=== PATIENT | male | born 1965 | race Caucasian/White ===

== ENCOUNTER 2017-04-28 23:37 | Observation (INO) | payer MEDICARE ==
--- NOTE | 2017-04-28 23:57 | PDOC ---
History of Present Illness - History of Present Illness Initial Comments: 04/28/17 23:58 52 yo M with h/o nicotine, alcohol, and cocaine dependence, homlessness, HTN, and depression, and prior suicide attempts. Pt. reports homicidal ideation prior to arrival. States that he had plan to stab someone he was arguing with. He states that when he leaves facility he is going to kill the individual. Patient also reports feeling suicidal and states that he is going to walk into oncoming traffic and end his life because he is in chronic pain and tired of living. Pt. reports 1 week of BL LE pain without swelling, and retrosternal pressure. States that he has been worked up at previous [facility] for chest pain, and no abnormal findings.Endorses chronic SOB, and chronic bronchitis. + diarrhea. Denies N/V, F/C, abdominal pain, urinary complaints, lightheadedness, weakness, sensory changes. Patient seen in [facility] for suicidal ideations 04/22. Patient reports cocaine, alcohol, and heroin use today. <Allan Rich - Last Filed: 04/29/17 07:06> <Donny Irving - Last Filed: 04/29/17 08:13> - General Stated Complaint: PSYCHIATRIC Time Seen by Provider: 04/28/17 23:52 Past History - Past Medical History Anemia: No Asthma: Yes (Not on meds) Cardiac Disorders: No CVA: No COPD: No Diabetes: No GI Disorders: Yes (Acid reflux) Disorders: No HTN: Yes (Not on meds) Hypercholesterolemia: No Kidney Stones: No Liver Disease: Yes (Hep C) Seizures: No Thyroid Disease: No - Surgical History Abdominal Surgery: No Appendectomy: No Cardiac Surgery: No Cholecystectomy: No Lung Surgery: No Neurologic Surgery: No Orthopedic Surgery: Yes (Left knee repair [address] [facility]) - Reproductive History Testicular Surgery: No - Suicide/Smoking/Psychosocial Hx Smoking History: Current every day smoker Have you smoked in the past 12 months: Yes Number of Cigarettes Smoked Daily: 20 'Breaking Loose' booklet given: 12/09/16 Hx Alcohol Use: Yes (Vodka) Drug/Substance Use Hx: Yes (Cocaine) Substance Use Type: Alcohol, Cocaine Hx Substance Use Treatment: Yes ([facility] 2006) <Allan Rich - Last Filed: 04/29/17 07:06> <AydeCamila davisaguilar Jonese - Last Filed: 04/29/17 08:13> - Past Medical History Allergies/Adverse Reactions: Allergies Allergy/AdvReac Type Severity Reaction Status Date / Time No Known Allergies Allergy Verified 04/29/17 03:42 Home Medications: Ambulatory Orders Aripiprazole [Abilify -] 10 mg PO DAILY 12/09/16 Barada Carbonate [Eskalith -] 300 mg PO TID 12/09/16 Review of Systems - Review of Systems Comments:: 04/28/17 23:56 GENERAL/CONSTITUTIONAL: No fever or chills. No weakness. HEAD, EYES, EARS, NOSE AND THROAT: No change in vision. No ear pain or discharge. No sore throat. CARDIOVASCULAR: No chest pain or shortness of breath RESPIRATORY: + Chest pain, cough. No wheezing, or hemoptysis. GASTROINTESTINAL: No nausea, vomiting, diarrhea or constipation. GENITOURINARY: No dysuria, frequency, or change in urination. MUSCULOSKELETAL: + Leg pain BL. No joint or muscle swelling. No neck or back pain. SKIN: No rash NEUROLOGIC: No headache, vertigo, loss of consciousness, or change in strength/ sensation. ENDOCRINE: No increased thirst. No abnormal weight change HEMATOLOGIC/LYMPHATIC: No anemia, easy bleeding, or history of blood clots. ALLERGIC/IMMUNOLOGIC: No hives or skin allergy. <Allan Rich - Last Filed: 04/29/17 07:06> *Physical Exam - Physical Exam Comments: 04/28/17 23:57 GENERAL: Awake, alert, and fully oriented, in no acute distress HEAD: No signs of trauma, normocephalic, atraumatic EYES: PERRLA, EOMI, sclera anicteric, conjunctiva clear ENT: Hearing grossly normal, nares patent, oropharynx clear without exudates. Moist mucosa NECK: Normal ROM, supple, no lymphadenopathy, JVD, or masses LUNGS: No distress, speaks full sentences, clear to auscultation bilaterally HEART: Regular rate and rhythm, normal S1 and S2, no murmurs, rubs or gallops, peripheral pulses normal and equal bilaterally. ABDOMEN: Soft, nontender, normoactive bowel sounds. No guarding, no rebound. No masses EXTREMITIES : Normal inspection, Normal range of motion, no edema. No clubbing or cyanosis. NEUROLOGICAL: Cranial nerves II through XII grossly intact. Normal speech, normal gait, no focal sensorimotor deficits SKIN: Warm, Dry, normal turgor, no rashes or lesions noted <Allan Rich - Last Filed: 04/29/17 07:06> - Vital Signs Last Vital Signs Temp Pulse Resp BP Pulse Ox 98.7 F 90 15 128/78 100 04/29/17 06:27 04/29/17 06:27 04/29/17 06:27 04/29/17 06:27 04/29/17 06:27 <Donny Irving - Last Filed: 04/29/17 08:13> ED Treatment Course - LABORATORY CBC & Chemistry Diagram: 04/29/17 02:35 04/29/17 02:35 <Allan Rich - Last Filed: 04/29/17 07:06> - LABORATORY CBC & Chemistry Diagram: 04/29/17 02:35 04/29/17 02:35 - ADDITIONAL ORDERS Additional order review: Laboratory Results 04/29/17 04/29/17 04/29/17 03:49 02:50 02:40 Sodium Potassium Chloride Carbon Dioxide Anion Gap BUN Creatinine Creat Clearance w eGFR Random Glucose Calcium Total Bilirubin AST ALT Alkaline Phosphatase Creatine Kinase 315 H Creatine Kinase Index 2.0 CK-MB (CK-2) 6.515 H Troponin I < 0.02 Total Protein Albumin Urine Color Straw Urine Appearance Clear Urine pH 7.0 Ur Specific [place] 1.006 Urine Protein Negative Urine Glucose (UA) Negative Urine Ketones Negative Urine Blood Negative Urine Nitrite Negative Urine Bilirubin Negative Urine Urobilinogen Negative Ur Leukocyte Esterase Negative Opiates Screen Negative Methadone Screen Negative Barbiturate Screen Negative Phencyclidine Screen Negative Ur Amphetamines Screen Negative MDMA (Ecstasy) Screen Negative Benzodiazepines Screen Negative Cocaine Screen Positive U Marijuana (THC) Screen Negative 04/29/17 02:35 Sodium 140 Potassium 4.2 Chloride 103 Carbon Dioxide 28 Anion Gap 9 BUN 16 Creatinine 0.9 Creat Clearance w eGFR > 60 Random Glucose 104 Calcium 8.6 Total Bilirubin 0.4 AST 31 ALT 36 Alkaline Phosphatase 162 H Creatine Kinase Creatine Kinase Index CK-MB (CK-2) Troponin I Total Protein 6.8 Albumin 3.1 L Urine Color Urine Appearance Urine pH Ur Specific [place] Urine Protein Urine Glucose (UA) Urine Ketones Urine Blood Urine Nitrite Urine Bilirubin Urine Urobilinogen Ur Leukocyte Esterase Opiates Screen Methadone Screen Barbiturate Screen Phencyclidine Screen Ur Amphetamines Screen MDMA (Ecstasy) Screen Benzodiazepines Screen Cocaine Screen U Marijuana (THC) Screen 04/29/17 02:35 RBC 4.07 MCV 75.2 L MCHC 33.3 RDW 18.7 H MPV 8.0 Neutrophils % 49.1 Lymphocytes % 36.1 Monocytes % 7.0 Eosinophils % 6.9 H Basophils % 0.9 - Medications Given in the ED: ED Medications Discontinued Medications Generic Name Dose Route Start Last Admin Trade Name Freq PRN Reason Stop Dose Admin Diphenhydramine HCl 25 mg 04/29/17 01:17 04/29/17 02:48 Benadryl Injection - IM 04/29/17 01:18 25 mg ONCE ONE Administration Haloperidol 5 mg 04/29/17 01:17 04/29/17 02:48 Haldol Injection (Fast Acting) - IM 04/29/17 01:18 5 mg ONCE ONE Administration Lorazepam 2 mg 04/29/17 01:17 04/29/17 02:48 Ativan Injection - IM 04/29/17 01:18 2 mg ONCE ONE Administration <Donny Irving - Last Filed: 04/29/17 08:13> Medical Decision Making - Medical Decision Making 04/29/17 01:24 52 yo M with h/o nicotine, alcohol, and cocaine dependence, homelessness, HTN, and depression, and prior suicide attempts who reports homicidal ideation prior to arrival. States that he had plan to stab someone he was arguing with. He states that when he leaves facility he is going to kill the individual. Patient also reports feeling suicidal and states that he is going to walk into oncoming traffic and end his life because he is in chronic pain and tired of living. Endorses BL LE pain without swelling, and retrosternal pressure x 1 week. Denies N/V, F/C, abdominal pain, urinary complaints, lightheadedness, weakness, sensory changes. Patient seen in [facility] for suicidal ideations 04/22. Patient reports cocaine, alcohol, and heroin use today. Patient endorsing both SI, and HI. He will be transferred to outside facility for further psych evaluation. Currently unable to obtain proper phsycial exam/ workup d/t agitation and refusal. LE pain may be 2/2 DVT, vs. cardiac etiology. Does not appear to be overlying skin changes. Will reassess LE and cardiopulm exam when able for possible PNA, CHF, ACS/WA. Low risk PE based on Weils criteria. 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 for psych eval. Pt. currently stable. Patient signed out to Dr. Mathew. <Allan Rich - Last Filed: 04/29/17 07:06> - Medical Decision Making 04/29/17 08:[address] was called regarding the patient at 8:13am and a message was left on his cell phone. [phone] <Donny Irving - Last Filed: 04/29/17 08:13> *DC/Admit/Observation/Transfer - Attestations Physician Attestion: 04/29/17 07:08 I attest to the information provided in this note. <Allan Rich - Last Filed: 04/29/17 07:06> <Donny Irving - Last Filed: 04/29/17 08:13> Diagnosis at time of Disposition: Suicidal behavior without attempted self-injury - Discharge Dispostion Condition at time of disposition: Stable - Referrals Referrals: Fan Way MD [Staff Physician] - - Patient Instructions Printed Discharge Instructions: DI for Suicidal Ideation-Adult Additional Instructions: Please return to the emergency department with any new or worsening symptoms or concerns. Please follow up with your primary care physician within 72 hours.
[2017-04-29] MEDS ORDERED: HALOPERIDOL LACTATE 5 MG/ML IM ONE (01:17)
[2017-04-29] MEDS ORDERED: HALOPERIDOL LACTATE 5 MG/ML ONE (02:38)
[2017-04-29] MEDS ORDERED: LORazepam 2 MG/ML SDV VIAL ONE (02:39)
[2017-04-29 02:47] LABS: BASO % 0.9 % (0-2.0); EOS % 6.9 % (0-4.5); HEMATOCRIT 30.6 % (35.4-49); HEMOGLOBIN 10.2 GM/dL (11.7-16.9); LYMPH % 36.1 % (8-40); MCH 25.1 pg (25.7-33.7); MCHC 33.3 g/dl (32.0-35.9); MEAN CELL VOLUME 75.2 fl (80-96); NEUT % 49.1 % (42.8-82.8); PLATELET COUNT 416 K/MM3 (134-434); RBC 4.07 M/mm3 (4.00-5.60); RDW 18.7 % (11.9-15.9); WHITE BLOOD COUNT 8.4 K/mm3 (4.0-10.0)
[2017-04-29 03:42] LABS: ALBUMIN 3.1 g/dl (3.4-5.0); ALK PHOS 162 U/L (45-117); ANION GAP 9 (8-16); BILIRUBIN,TOTAL 0.4 mg/dL (0.2-1.0); BLOOD UREA NITROGEN 16 mg/dL (7-18); CALCIUM 8.6 mg/dL (8.5-10.1); CHLORIDE 103 mmol/L (98-107); CO2 28 mmol/L (21-32); CREATININE 0.9 mg/dL (0.7-1.3); GLUCOSE,RANDOM 104 mg/dL (74-106); POTASSIUM 4.2 mmol/L (3.5-5.1); SGOT/AST 31 U/L (15-37); SGPT/ALT 36 U/L (12-78); SODIUM 140 mmol/L (136-145); TOT PROT 6.8 g/dl (6.4-8.2)
[2017-04-29 04:45] LABS: URINE APPEARANCE CLEAR; URINE BILIRUBIN NEGATIVE (<2.0 mg/dL); URINE BLOOD NEGATIVE (NEGATIVE); URINE COLOR STRAW; URINE GLUCOSE (UA) NEGATIVE (NEGATIVE); URINE KETONE NEGATIVE (NEGATIVE); URINE LEUK ESTERASE NEGATIVE (NEGATIVE); URINE NITRITE NEGATIVE (NEGATIVE); URINE PROTEIN NEGATIVE (NEGATIVE); URINE UROBILINOGEN NEGATIVE mg/dL (0.2-1.0)
[2017-04-29 05:43] LABS: METHADONE, UR NEGATIVE ng/ml (CUTOFF=300); OPIATES, URI NEGATIVE ng/ml (CUTOFF=300); PHENCYCLIDINE,URINE NEGATIVE ng/ml (CUTOFF=25); URINE AMPHETAMINES NEGATIVE ng/ml (CUTOFF=500); URINE BARBITURATES NEGATIVE ng/ml (CUTOFF=200); URINE BENZODIAZEPINES NEGATIVE ng/ml (CUTOFF=200)
[2017-04-29 05:45] LABS: COCAINE, UR POSITIVE ng/ml (CUTOFF=300)
--- NOTE | 2017-04-29 06:01 | PDOC ---
Attending Attestation - Resident Resident Name: Allan Rich - ED Attending Attestation I have performed the following: I have examined & evaluated the patient, The case was reviewed & discussed with the resident, I agree w/resident's findings & plan, Exceptions are as noted
--- NOTE | 2017-04-29 07:31 | PDOC ---
*Physical Exam - Vital Signs Last Vital Signs Temp Pulse Resp BP Pulse Ox 98.7 F 90 15 128/78 100 04/29/17 06:27 04/29/17 06:27 04/29/17 06:27 04/29/17 06:27 04/29/17 06:27 - Physical Exam Comments: 04/29/17 07:35 GENERAL: Resting comfortably, in no acute distress HEAD: No signs of trauma, normocephalic, atraumatic EYES: PERRLA, EOMI, sclera anicteric, conjunctiva clear ENT: Auricles normal inspection, hearing grossly normal, nares patent, oropharynx clear without exudates. Moist mucosa EXTREMITIES: Normal inspection, Normal range of motion, no edema. No clubbing or cyanosis. SKIN: Warm, Dry, normal turgor, no rashes or lesions noted. ED Treatment Course - LABORATORY CBC & Chemistry Diagram: 04/29/17 02:35 04/29/17 02:35 - ADDITIONAL ORDERS Additional order review: Laboratory Results 04/29/17 04/29/17 04/29/17 03:49 02:50 02:40 Sodium Potassium Chloride Carbon Dioxide Anion Gap BUN Creatinine Creat Clearance w eGFR Random Glucose Calcium Total Bilirubin AST ALT Alkaline Phosphatase Creatine Kinase 315 H Creatine Kinase Index 2.0 CK-MB (CK-2) 6.515 H Troponin I < 0.02 Total Protein Albumin Urine Color Straw Urine Appearance Clear Urine pH 7.0 Ur Specific [place] 1.006 Urine Protein Negative Urine Glucose (UA) Negative Urine Ketones Negative Urine Blood Negative Urine Nitrite Negative Urine Bilirubin Negative Urine Urobilinogen Negative Ur Leukocyte Esterase Negative Opiates Screen Negative Methadone Screen Negative Barbiturate Screen Negative Phencyclidine Screen Negative Ur Amphetamines Screen Negative MDMA (Ecstasy) Screen Negative Benzodiazepines Screen Negative Cocaine Screen Positive U Marijuana (THC) Screen Negative 04/29/17 02:35 Sodium 140 Potassium 4.2 Chloride 103 Carbon Dioxide 28 Anion Gap 9 BUN 16 Creatinine 0.9 Creat Clearance w eGFR > 60 Random Glucose 104 Calcium 8.6 Total Bilirubin 0.4 AST 31 ALT 36 Alkaline Phosphatase 162 H Creatine Kinase Creatine Kinase Index CK-MB (CK-2) Troponin I Total Protein 6.8 Albumin 3.1 L Urine Color Urine Appearance Urine pH Ur Specific [place] Urine Protein Urine Glucose (UA) Urine Ketones Urine Blood Urine Nitrite Urine Bilirubin Urine Urobilinogen Ur Leukocyte Esterase Opiates Screen Methadone Screen Barbiturate Screen Phencyclidine Screen Ur Amphetamines Screen MDMA (Ecstasy) Screen Benzodiazepines Screen Cocaine Screen U Marijuana (THC) Screen 04/29/17 02:35 RBC 4.07 MCV 75.2 L MCHC 33.3 RDW 18.7 H MPV 8.0 Neutrophils % 49.1 Lymphocytes % 36.1 Monocytes % 7.0 Eosinophils % 6.9 H Basophils % 0.9 - Medications Given in the ED: ED Medications Discontinued Medications Generic Name Dose Route Start Last Admin Trade Name Jaime PRN Reason Stop Dose Admin Diphenhydramine HCl 25 mg 04/29/17 01:17 04/29/17 02:48 Benadryl Injection - IM 04/29/17 01:18 25 mg ONCE ONE Administration Haloperidol 5 mg 04/29/17 01:17 04/29/17 02:48 Haldol Injection (Fast Acting) - IM 04/29/17 01:18 5 mg ONCE ONE Administration Lorazepam 2 mg 04/29/17 01:17 04/29/17 02:48 Ativan Injection - IM 04/29/17 01:18 2 mg ONCE ONE Administration Medical Decision Making - Medical Decision Making 04/29/17 07:[address] Rich. Patient is 52M with history of nicotine, alcohol , and cocaine dependence, homelessness, HTN, and depression, and prior suicide attempts here today with suicidal and homicidal ideation. Vital signs stable. Labs within normal limits. Utox positive for cocaine. Pending call back from Dr Way. 04/29/17 11:[address]. Patient is still intoxicated. Will place in obs for intoxication, will require re-evaluation after sobriety achieved. Patient admitted to hospitalist. *DC/Admit/Observation/Transfer Diagnosis at time of Disposition: Suicidal behavior without attempted self-injury, Intoxication - Discharge Dispostion Condition at time of disposition: Stable Admit: Yes - Referrals - Patient Instructions - Post Discharge Activity
--- NOTE | 2017-04-29 11:02 | CON.PSY ---
Psychiatry Consult Chief Complaint: 52 yr old male with a history of Substance abuse, Cocaine, alcohol ets. came to Er complainibg that he wants to kill himself and others. patient was given medication and has been sleeping, got up to eat breakfast and dosing off. no acute agitation or any self damaging behaviour. Patient denies any suicidal thoughts at this time. Muttering that he wants to kill his brother but has no concrete plans. Symptoms: reports: Conduct Problems, Oppositionalism - Previous Psychiatric Treatment Outpatient: More than 6 mos ago Inpatient: None - Previous Substance Abuse Treatment Outpatient: None Inpatient: None - Reason for Previous Treatment Reason for Previous Treatment: Alcohol Abuse, Cocaine, Other Drugs - Allergies Allergies: Allergies Allergy/AdvReac Type Severity Reaction Status Date / Time No Known Allergies Allergy Verified 04/29/17 03:42 - Current Living Status Usual Living Arrangement: Alone - Current Mental Status Evaluation Appearance: Disheveled Attitude: Uncooperative - Affect Affect: Constrictive Appropriateness: Appropriate to Content - Mood Mood: Angry - Speech/Language Expressive: Coherent - Psychomotor Activity Psychomotor Activity: Normal, Slowed, Hyperactive - Thought Process Thought Process: Intact - Thought Content Hallucinations: Absent Delusions: Absent - Self Perception Self Perception: No Impairment - Cognition Attention: Diminished Orientation: Time Memory, Short Term: 2/3 Memory, Remote with Promptin/3 - Concentration Serial Sevens Intact: No Simple Calculations Intact: No - Abstraction Proverb Interpretation: Intact Judgement: Minimally Impaired - Insight Insight: Impaired - Impulse Control Impulse Control: Minimally Impaired - Suicidal Ideation Suicidal Ideation: No - Homicidal Ideation Homicidal Ideation: Yes (states want to kill his brother) Plan: No plans. Assessment/Plan !) Patient is intoxicated, was given meds in the ER. 2) Discharge patient when he wakes up and wants to leave. 3) continue with 1:1 until discharge.
--- NOTE | 2017-04-29 11:38 | PN ---
Physical Exam: SUBJECTIVE: Patient seen and examined OBJECTIVE: Vital Signs Period Temp Pulse Resp BP Sys/Virk Pulse Ox Last 24 Hr 97.6 F-98.7 F 67-90 15-18 126-130/70-78 98-100 GENERAL: The patient is awake, alert, and fully oriented, in no acute distress. HEAD: Normal with no signs of trauma. EYES: PERRL, extraocular movements intact, sclera anicteric, conjunctiva clear. No ptosis. ENT: Ears normal, nares patent, oropharynx clear without exudates, moist mucous membranes. NECK: Trachea midline, full range of motion, supple. LUNGS: Breath sounds equal, clear to auscultation bilaterally, no wheezes, no crackles, no accessory muscle use. HEART: Regular rate and rhythm, S1, S2 without murmur, rub or gallop. ABDOMEN: Soft, nontender, nondistended, normoactive bowel sounds, no guarding, no rebound, no hepatosplenomegaly, no masses. EXTREMITIES: 2+ pulses, warm, well-perfused, no edema. NEUROLOGICAL: Cranial nerves II through XII grossly intact. Normal speech, gait not observed. PSYCH: Normal mood, normal affect. SKIN: Warm, dry, normal turgor, no rashes or lesions noted Laboratory Results - last 24 hr 04/29/17 04/29/17 04/29/17 02:35 02:35 02:40 WBC 8.4 RBC 4.07 Hgb 10.2 L Hct 30.6 L MCV 75.2 L MCH 25.1 L MCHC 33.3 RDW 18.7 H Plt Count 416 MPV 8.0 Neutrophils % 49.1 Lymphocytes % 36.1 Monocytes % 7.0 Eosinophils % 6.9 H Basophils % 0.9 Sodium 140 Potassium 4.2 Chloride 103 Carbon Dioxide 28 Anion Gap 9 BUN 16 Creatinine 0.9 Creat Clearance w eGFR > 60 Random Glucose 104 Calcium 8.6 Total Bilirubin 0.4 AST 31 ALT 36 Alkaline Phosphatase 162 H Creatine Kinase 315 H Creatine Kinase Index 2.0 CK-MB (CK-2) 6.515 H Troponin I < 0.02 Total Protein 6.8 Albumin 3.1 L Urine Color Urine Appearance Urine pH Ur Specific [place] Urine Protein Urine Glucose (UA) Urine Ketones Urine Blood Urine Nitrite Urine Bilirubin Urine Urobilinogen Ur Leukocyte Esterase Opiates Screen Methadone Screen Barbiturate Screen Phencyclidine Screen Ur Amphetamines Screen MDMA (Ecstasy) Screen Benzodiazepines Screen Cocaine Screen U Marijuana (THC) Screen 04/29/17 04/29/17 02:50 03:49 WBC RBC Hgb Hct MCV MCH MCHC RDW Plt Count MPV Neutrophils % Lymphocytes % Monocytes % Eosinophils % Basophils % Sodium Potassium Chloride Carbon Dioxide Anion Gap BUN Creatinine Creat Clearance w eGFR Random Glucose Calcium Total Bilirubin AST ALT Alkaline Phosphatase Creatine Kinase Creatine Kinase Index CK-MB (CK-2) Troponin I Total Protein Albumin Urine Color Straw Urine Appearance Clear Urine pH 7.0 Ur Specific [place] 1.006 Urine Protein Negative Urine Glucose (UA) Negative Urine Ketones Negative Urine Blood Negative Urine Nitrite Negative Urine Bilirubin Negative Urine Urobilinogen Negative Ur Leukocyte Esterase Negative Opiates Screen Negative Methadone Screen Negative Barbiturate Screen Negative Phencyclidine Screen Negative Ur Amphetamines Screen Negative MDMA (Ecstasy) Screen Negative Benzodiazepines Screen Negative Cocaine Screen Positive U Marijuana (THC) Screen Negative Active Medications Generic Name Dose Route Start Last Admin Trade Name Freq PRN Reason Stop Dose Admin Sodium Chloride 1,000 mls @ 100 mls/hr 04/29/17 11:45 Normal Saline - IV ASDIR DESIREE ASSESSMENT/PLAN:
[2017-04-29] MEDS: SODIUM CHLORIDE 1,000 ML IV SCH (11:47)
[2017-04-29] MEDS ORDERED: LORazepam 1 MG TABLET PO PRN (12:06)
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
[2017-04-29 18:22] VITALS: BMI 21.7
[2017-04-29] MEDS ORDERED: FOLIC ACID INJECTION - 1 MG, THIAMINE HCL 100 MG, MULTIVIT INJECTION ADULT 10 ML in SOD... IVPB ONE (19:13)
[2017-04-29] MEDS ORDERED: ACETAMINOPHEN 325 MG TABLET (FP) PO PRN (22:50)
[2017-04-29] MEDS ORDERED: IBUPROFEN 600 MG TABLET (FP) PO PRN (22:51)
[2017-04-30] MEDS: SODIUM CHLORIDE 1,000 ML IV SCH (05:49)
--- NOTE | 2017-04-30 08:11 | PN ---
Physical Exam: SUBJECTIVE: Patient seen and examined at the bedside. "I dont want to talk about why I am here" "My back hurts, you dont need to know what happened to my back" "I am not answering any more questions" OBJECTIVE: Refusing to answer my questions asking for Naproxyn, will order Agitated, refusing exam Needs to be seen by psyche prior to d/c Vital Signs Period Temp Pulse Resp BP Sys/Virk Pulse Ox Last 24 Hr 97.4 F-99 F 54-88 15-18 106-130/58-84 97-98 GENERAL: The patient is awake, alert, agitated HEAD: Normal with no signs of trauma. EYES: PERRL, extraocular movements intact, sclera anicteric, conjunctiva clear. No ptosis. ENT: Ears normal, nares patent, oropharynx clear without exudates, moist mucous membranes. NECK: Trachea midline, full range of motion, supple. Active Medications Generic Name Dose Route Start Last Admin Trade Name Freq PRN Reason Stop Dose Admin Acetaminophen 650 mg 04/29/17 22:50 04/30/17 06:05 Tylenol - PO 650 mg Q6H PRN Administration PAIN LEVEL 1 - 3 Folic Acid 1 mg 04/30/17 10:00 Folic Acid - PO DAILY [facility] Lorazepam 1 mg 04/29/17 12:06 Ativan - PO TID PRN ANXIETY Multivitamins/Minerals/Vitamin C 1 tab 04/30/17 10:00 Tab-A-Vit - PO DAILY [facility] Naproxen 500 mg 04/30/17 10:00 Naprosyn - PO BID [facility] ASSESSMENT/PLAN:
[2017-04-30] MEDS ORDERED: FOLIC ACID 1 MG TABLET (FP) PO SCH (10:00)
[2017-04-30] MEDS ORDERED: MULTIVITAMINS (DAILY MVI) TABLET (FP) PO SCH (10:00)
[2017-04-30] MEDS ORDERED: NAPROXEN 500 MG TABLET (FP) PO SCH (10:00)
--- NOTE | 2017-04-30 11:00 | PN ---
Progress Note (short form) - Note Progress Note: Psych follow up. Patient seen for Psuych follow up> MS: Awake, alert, good eye contact, not hallucinating or delusional. No longer threatening to hurt himself or others. patient does not rtemember talking about Killing his Brother> Admits to taking crack cocaine. Patints thinking is organized. Not hallucinating or delusional. Cognition Intact. Plan.1) D/c !:1 2) Discharge when medically stable. 3) patient will contact his sponsor to help him with Rehab.
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
[2017-04-30 11:52] VITALS: BP 122/74; PULSE 60; TEMP 98.6
--- NOTE | 2017-04-30 21:43 | EKG ---
Test Reason : Blood Pressure : / mmHG Vent. Rate : 069 BPM Atrial Rate : 069 BPM P-R Int : 174 ms QRS Dur : 096 ms QT Int : 402 ms P-R-T Axes : 075 071 065 degrees QTc Int : 430 ms NORMAL SINUS RHYTHM WITH SINUS ARRHYTHMIA POSSIBLE LEFT ATRIAL ENLARGEMENT BORDERLINE ECG NO PREVIOUS ECGS AVAILABLE Confirmed by JOHANA SOTO MD ([id number]) on 04/30/2017 9:42:53 PM Referred By: Confirmed By:JOHANA SOTO MD
== END 2017-04-30 11:50 | disposition home or self-care (01) ==
LOC: JER 23:37 → JERBED 04-29 11:36 → J6S 04-29 17:44
PROVIDERS: ADMIT Internal Medicine; ATTEND Nurse Practitioner Family
PROC: 3E033GC Introduction of Other Therapeutic Substance into Peripheral Vein, Percutaneous Approach (ICD-10-PCS; principal; 2017-04-29)
PROC: 3E0337Z Introduction of Electrolytic and Water Balance Substance into Peripheral Vein, Percutaneous Approach (ICD-10-PCS; 2017-04-29)
PROC: 3E023GC Introduction of Other Therapeutic Substance into Muscle, Percutaneous Approach (ICD-10-PCS; 2017-04-29)
DX: R45.850 Homicidal ideations (principal); R45.851 Suicidal ideations; F10.229 Alcohol dependence with intoxication, unspecified; F14.20 Cocaine dependence, uncomplicated; F17.210 Nicotine dependence, cigarettes, uncomplicated; I10 Essential (primary) hypertension; F32.9 Major depressive disorder, single episode, unspecified; K21.9 Gastro-esophageal reflux disease without esophagitis; J45.909 Unspecified asthma, uncomplicated; B18.2 Chronic viral hepatitis C; Z91.5 Personal history of self-harm; Z59.0 Homelessness
CPT/HCPCS: 36415; 80053; 80307; 81003; 82550; 82553; 84484; 85025; 93005; 93010; 96365; 96366; 96372; 99285-25; G0378; J7030

== ENCOUNTER 2018-01-12 19:16 | Emergency (ER) | payer SELFPAY ==
[2018-01-12 19:25] VITALS: BP 129/85; PULSE 91; TEMP 99.9; BMI 29.0
--- NOTE | 2018-01-12 19:28 | PDOC ---
Rapid Medical Evaluation Time Seen by Provider: 01/12/18 19:18 Medical Evaluation: Allergies Allergy/AdvReac Type Severity Reaction Status Date / Time No Known Allergies Allergy Verified 04/29/17 03:42 01/12/18 19:22 I have performed a brief in-person evaluation of this patient. The patient presents with a chief complaint of: Requesting inpt detox. [facility] and told no beds. Last ingestion ~5am this am. States he feels like he is in withdrawal, c/o body aches and nausea. H/o polysubstance abuse including heroin, crack and ETOH, prior suicide attempts, depression, schizoaffective d/o, on abilify Pertinent physical exam findings: crying at triage, stable I have ordered the following: labs The patient will proceed to the ED for further evaluation. Discharge Disposition - Diagnosis Body aches - Referrals - Patient Instructions - Post Discharge Activity
[2018-01-12] MEDS ORDERED: METHADONE HCL 10 MG TABLET (FOR DETOX USE ONLY) PO ONE (19:44)
[2018-01-12] MEDS ORDERED: chlordiazePOXIDE HCL 25 MG CAPSULE PO ONE (19:44)
--- NOTE | 2018-01-12 19:44 | PDOC ---
Attending Attestation - HPI HPI: This patient is a 52 year old male with PMHx of polysubstance abuse (heroin, crack-cocaine, marijuana, and alcohol),prior suicide attempts, depression, schizoaffective d/o, on abilify, who was sent from [facility] for eval prior to being admitted for detox. He states he last used ~5am this morning. He is currently complaining of body aches and nausea. <Gerda Lackey - Last Filed: 01/12/18 19:46> - Resident Resident Name: Kd Cox - ED Attending Attestation I have performed the following: I have examined & evaluated the patient, The case was reviewed & discussed with the resident, I agree w/resident's findings & plan - Physicial Exam PE: 01/12/18 21:37 Agree with resident exam. Pt is ambulating about the ER, taking food off the food cart and eating. He appears well. No tremors. - Medical Decision Making 01/12/18 20:23 CXR is normal; EKG normal. 01/12/18 21:41 Pt's labs are nornal; exdam normal. He feels well after eating in the ER and getting methadone and librium. He will be discharged home, as there are no beds at [facility]; I called again and they tell me there are no beds and none expected to open up tonight. <Lucille Elder - Last Filed: 01/13/18 20:03> Heart Score/ECG Review - ECG Intrepretation Rhythm: Regular Rhythm - [place]: Normal - P and DC Delta Wave(s) Present: No WPW: No - ST and T Early Repolarization: No Non Specific ST-T Wave changes: No Flattened T Waves: No Prolonged Q-T Interval: No - ECG Impressions Normal ECG: Yes Non-specific ST Elevation: No Ischemic Changes: No <Lucille Elder - Last Filed: 01/13/18 20:03>
[2018-01-12] MEDS ORDERED: chlordiazePOXIDE HCL 25 MG CAPSULE ONE ×2 (19:52→21:32)
[2018-01-12] MEDS ORDERED: METHADONE HCL 10 MG TABLET ONE (19:53)
--- NOTE | 2018-01-12 20:23 | PDOC ---
History of Present Illness - General Chief Complaint: Substance Abuse Stated Complaint: WITHDRAWAL Time Seen by Provider: 01/12/18 19:18 History Source: Patient Exam Limitations: No Limitations - History of Present Illness Initial Comments: 01/12/18 19:55 The patient is a 52M with a PMH of polysubstance abuse (heroine, crack, marijuana, and EtOH), schizophrenia, depression, SI attempts who presents to the ER with complaints of withdrawal. The patient states that he last used 4 bags of heroine this morning (snorting) and drinks "a couple beers" a day. He states that he may have used crack today. He admits to a cough and some diffuse chest pains, as well as fever and chills. He denies nausea, vomiting, SOB, diarrhea, constipation, and changes in his vision. Past History - Past Medical History Allergies/Adverse Reactions: Allergies Allergy/AdvReac Type Severity Reaction Status Date / Time No Known Allergies Allergy Verified 04/29/17 03:42 Home Medications: Ambulatory Orders Aripiprazole [Abilify -] 10 mg PO DAILY 12/09/16 [place] Carbonate [Eskalith -] 300 mg PO TID 12/09/16 Ibuprofen [Motrin -] 600 mg PO Q8H PRN tablet 04/30/17 Anemia: No Asthma: Yes (Not on meds) Cardiac Disorders: No CVA: No COPD: No Diabetes: No GI Disorders: Yes (Acid reflux) Disorders: No HTN: Yes (Not on meds) Hypercholesterolemia: No Kidney Stones: No Liver Disease: Yes (Hep C) Seizures: No Thyroid Disease: No - Surgical History Abdominal Surgery: No Appendectomy: No Cardiac Surgery: No Cholecystectomy: Yes Lung Surgery: No Neurologic Surgery: No Orthopedic Surgery: Yes (Left knee repair 2006 at [facility]) - Reproductive History Testicular Surgery: No - Suicide/Smoking/Psychosocial Hx Smoking History: Current every day smoker Have you smoked in the past 12 months: Yes Number of Cigarettes Smoked Daily: 15 Information on smoking cessation initiated: No 'Breaking Loose' booklet given: 12/09/16 Hx Alcohol Use: Yes Drug/Substance Use Hx: Yes (crack, heroin) Substance Use Type: Alcohol, Cocaine Hx Substance Use Treatment: Yes ([facility] 2006) Review of Systems - Review of Systems Able to Perform ROS?: Yes Comments:: 01/12/18 20:25 GENERAL/CONSTITUTIONAL: Positive for fever and chills. No weakness. HEAD, EYES, EARS, NOSE AND THROAT: No change in vision. No ear pain or discharge. No sore throat. CARDIOVASCULAR: Positive for chest pain. No palpitations or lightheadedness. RESPIRATORY: Positive for cough. No wheezing, shortness of breath, or hemoptysis. GASTROINTESTINAL: No nausea, vomiting, diarrhea, constipation, or abdominal pain. GENITOURINARY: No dysuria, frequency, hematuria, or change in urination. MUSCULOSKELETAL: No joint or muscle swelling or pain. No neck or back pain. SKIN: No rash or lesions. NEUROLOGIC: No headache, numbness, tingling, focal weakness, loss of consciousness, or change in strength/sensation. Is the patient limited Kazakh proficient: No *Physical Exam - Vital Signs Last Vital Signs Temp Pulse Resp BP Pulse Ox 99.9 F H 91 H 20 129/85 98 01/12/18 19:18 01/12/18 19:18 01/12/18 19:18 01/12/18 19:18 01/12/18 19:18 - Physical Exam Comments: 01/12/18 20:27 GENERAL: Well developed, well nourished. Awake and alert. No acute distress. HEENT: Normocephalic, atraumatic. Hearing grossly normal. Moist mucous membranes. PERRLA, EOMI. No conjunctival pallor. Sclera are non-icteric. NECK: Supple. Full ROM. No JVD. CARDIOVASCULAR: Regular rate and rhythm. No murmurs, rubs, or gallops. PULMONARY: No evidence of respiratory distress. Diffuse rhonchi bilaterally. ABDOMINAL: Soft. Non-tender. Non-distended. No rebound or guarding. GENITOURINARY: No CVA tenderness bilaterally. MUSCULOSKELETAL: Normal range of motion at all joints. No bony deformities or tenderness. EXTREMITIES: No cyanosis. No clubbing. No edema. No calf tenderness or swelling. SKIN: Warm and dry. Normal capillary refill. No rashes. No jaundice. NEUROLOGICAL: Alert, awake, appropriate. Cranial nerves 2-12 grossly intact. Normal speech. Gait is normal without ataxia. PSYCHIATRIC: Cooperative. Good eye contact. Appropriate mood and affect. Moderate Sedation - Procedure Monitoring Vital Signs: Procedure Monitoring Vital Signs Temperature 99.9 F H 01/12/18 19:18 Pulse Rate 91 H 01/12/18 19:18 Respiratory Rate 20 01/12/18 19:18 Blood Pressure 129/85 01/12/18 19:18 O2 Sat by Pulse Oximetry (%) 98 01/12/18 19:18 ED Treatment Course - LABORATORY CBC & Chemistry Diagram: 01/12/18 19:43 01/12/18 19:43 Medical Decision Making - Medical Decision Making 01/12/18 20:28 The patient is a 52M with a PMH of polysubstance abuse who presents to the ER for rehab. The patient states that he tried to go to [facility] and they said they have no beds available so he came here. He states that he has a cough and last used heroine this morning. Will give 20 methadone and 50 librium while labs and imaging are done. Pt stable, walking around ER, well appearing, and eating food. 01/12/18 21:34 Labs WNL. Pt requests to leave. Will d/c and have pt f/u again with [facility]. *DC/Admit/Observation/Transfer Diagnosis at time of Disposition: Body aches - Discharge Dispostion Disposition: HOME Condition at time of disposition: Stable Decision to Admit order: No - Referrals Referrals: [facility] – [place] [facility] [Provider Group] - Patient Instructions Printed Discharge Instructions: DI for Drug or Alcohol Withdrawal Additional Instructions: Please follow up with your primary care physician in 2-3 days. Please return to the ER if you have any signs or symptoms of chest pain, shortness of breath, uncontrollable fever, chills, nausea, vomiting, numbness, tingling, or weakness in any part of your body, changes in vision, or slurred speech. Please return to the ER if symptoms persist, worsen, or new symptoms arise. - Post Discharge Activity
[2018-01-12 20:33] LABS: BASO % 0.3 % (0-2.0); EOS % 4.7 % (0-4.5); HEMATOCRIT 31.7 % (35.4-49); LYMPH % 21.2 % (8-40); MCH 28.4 pg (25.7-33.7); MCHC 34.8 g/dl (32.0-35.9); MEAN CELL VOLUME 81.6 fl (80-96); MEAN PLT VOLUME 9.2 fl (7.5-11.1); MONO % 7.9 % (3.8-10.2); NEUT % 65.9 % (42.8-82.8); PLATELET COUNT 210 K/MM3 (134-434); RBC 3.88 M/mm3 (4.00-5.60); RDW 18.4 % (11.9-15.9); WHITE BLOOD COUNT 6.9 K/mm3 (4.0-10.0)
[2018-01-12 20:46] LABS: URINE APPEARANCE CLEAR; URINE BILIRUBIN NEGATIVE (<2.0 mg/dL); URINE COLOR YELLOW; URINE GLUCOSE (UA) NEGATIVE (NEGATIVE); URINE KETONE NEGATIVE (NEGATIVE); URINE LEUK ESTERASE NEGATIVE (NEGATIVE); URINE NITRITE NEGATIVE (NEGATIVE); URINE PROTEIN NEGATIVE (NEGATIVE); URINE UROBILINOGEN 4.0 E.U/dl mg/dL (0.2-1.0)
[2018-01-12 21:19] LABS: ALBUMIN 3.3 g/dl (3.4-5.0); ALK PHOS 98 U/L (45-117); ANION GAP 8 MMOL/L (8-16); BILIRUBIN,TOTAL 0.8 mg/dL (0.2-1); BLOOD UREA NITROGEN 16 mg/dL (7-18); CHLORIDE 106 mmol/L (98-107); CO2 26 mmol/L (21-32); CREATININE 0.9 mg/dL (0.55-1.3); GLUCOSE,RANDOM 94 mg/dL (74-106); LIPASE 197 U/L (73-393); SGOT/AST 50 U/L (15-37); SGPT/ALT 48 U/L (13-61); SODIUM 140 mmol/L (136-145); TOT PROT 6.3 g/dl (6.4-8.2)
--- NOTE | 2018-01-13 21:22 | EKG ---
Test Reason : Blood Pressure : / mmHG Vent. Rate : 079 BPM Atrial Rate : 079 BPM P-R Int : 162 ms QRS Dur : 106 ms QT Int : 362 ms P-R-T Axes : 016 061 053 degrees QTc Int : 415 ms NORMAL SINUS RHYTHM NORMAL ECG WHEN COMPARED WITH ECG OF 29-APR-2017 04:36, NO SIGNIFICANT CHANGE WAS FOUND Confirmed by MADELIN SALAMANCA MD ([id number]) on 01/13/2018 9:22:12 PM Referred By: Confirmed By:MADELIN SALAMANCA MD
== END 2018-01-12 21:43 | disposition home or self-care (01) ==
LOC: JER 19:16
DX: F11.23 Opioid dependence with withdrawal (principal); I10 Essential (primary) hypertension; J45.909 Unspecified asthma, uncomplicated; F32.9 Major depressive disorder, single episode, unspecified; F20.9 Schizophrenia, unspecified; F17.210 Nicotine dependence, cigarettes, uncomplicated; Z91.5 Personal history of self-harm
CPT/HCPCS: 36415; 71045-TC-FY; 80053; 81003; 83690; 85025; 93005; 93010; 99282-25

== ENCOUNTER 2018-01-18 15:21 | Emergency (ER) | payer SELFPAY ==
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
[2018-01-18 15:36] VITALS: BP 139/76; PULSE 85; TEMP 98; BMI 29.7
[2018-01-18] MEDS ORDERED: IBUPROFEN 400 MG TABLET (FP) PO ONE ×2 (17:12→17:13)
[2018-01-18] MEDS ORDERED: ACETAMINOPHEN 325 MG TABLET (FP) PO ONE (17:12)
[2018-01-18] MEDS ORDERED: LIDOCAINE VISCOUS 2% ORAL/TOP 20 ML UNIT-DOSE CUP ONE (17:12)
[2018-01-18] MEDS ORDERED: LIDOCAINE VISCOUS 2% ORAL/TOP 20 ML UNIT-DOSE CUP MM ONE (17:12)
[2018-01-18] MEDS ORDERED: ACETAMINOPHEN 325 MG TABLET (FP) ONE (17:13)
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
[2018-01-18 18:29] LABS: BASO % 0.3 % (0-2.0); EOS % 2.7 % (0-4.5); HEMATOCRIT 30.9 % (35.4-49); HEMOGLOBIN 10.7 GM/dL (11.7-16.9); LYMPH % 16.6 % (8-40); MCHC 34.8 g/dl (32.0-35.9); MEAN CELL VOLUME 80.6 fl (80-96); MEAN PLT VOLUME 8.8 fl (7.5-11.1); MONO % 5.6 % (3.8-10.2); NEUT % 74.8 % (42.8-82.8); PLATELET COUNT 324 K/MM3 (134-434); RBC 3.83 M/mm3 (4.00-5.60); RDW 17.9 % (11.9-15.9); WHITE BLOOD COUNT 7.6 K/mm3 (4.0-10.0)
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
[2018-01-18 18:43] LABS: INR 1.06 (0.83-1.09); PROTHROMBIN TIME (PATIENT) 12.5 SEC (9.7-13.0)
--- NOTE | 2018-01-18 18:51 | CON.PSY ---
Psychiatry Consult Chief Complaint: Patient known to me from previous admissiion. Long history of mixed substance abuse, alcoholism. Came to ER and Expressed Vague suicidal ideas with no plans. Reports he was in halfway until few days ago, many incarcerations. - Previous Psychiatric Treatment Outpatient: More than 6 mos ago Inpatient: None - Previous Substance Abuse Treatment Outpatient: More than 6 mos ago - Reason for Previous Treatment Reason for Previous Treatment: Alcohol Abuse, Cocaine, Other Drugs - Allergies Allergies: Allergies Allergy/AdvReac Type Severity Reaction Status Date / Time No Known Allergies Allergy Verified 04/29/17 03:42 - Current Living Status Usual Living Arrangement: Alone - Current Mental Status Evaluation Appearance: Disheveled Attitude: Guarded - Affect Affect: Constrictive Appropriateness: Appropriate to Content - Mood Mood: Euthymic - Speech/Language Expressive: Coherent - Psychomotor Activity Psychomotor Activity: Normal - Thought Process Thought Process: Intact - Thought Content Hallucinations: Absent Delusions: Absent - Self Perception Self Perception: No Impairment - Cognition Attention: Alert Orientation: Time Memory, Immediate Recall: Intact Memory, Short Term: 2/3 Memory, Remote with Promptin/3 - Concentration Serial Sevens Intact: No Simple Calculations Intact: Yes - Abstraction Proverb Interpretation: Impaired Judgement: Minimally Impaired - Insight Insight: Impaired - Impulse Control Impulse Control: Good Control - Suicidal Ideation Suicidal Ideation: No (No plans either.) - Homicidal Ideation Homicidal Ideation: No Assessment/Plan 1) No acute Psychiatric Illness. 2) Detox? 3) Patient can be transferred to [facility]. #0 Psychaitrically cleraed for Discharge.
[2018-01-18 19:00] LABS: METHADONE, UR NEGATIVE ng/ml (CUTOFF=300); OPIATES, URI NEGATIVE ng/ml (CUTOFF=300); PHENCYCLIDINE,URINE NEGATIVE ng/ml (CUTOFF=25); URINE AMPHETAMINES NEGATIVE ng/ml (CUTOFF=500); URINE BARBITURATES NEGATIVE ng/ml (CUTOFF=200)
[2018-01-18 19:06] LABS: COCAINE, UR POSITIVE ng/ml (CUTOFF=300); URINE BENZODIAZEPINES POSITIVE ng/ml (CUTOFF=200)
[2018-01-18 19:13] LABS: ALBUMIN 3.3 g/dl (3.4-5.0); ALK PHOS 191 U/L (45-117); ANION GAP 10 MMOL/L (8-16); BILIRUBIN,TOTAL 0.5 mg/dL (0.2-1); BLOOD UREA NITROGEN 16 mg/dL (7-18); CALCIUM 8.3 mg/dL (8.5-10.1); CHLORIDE 102 mmol/L (98-107); CO2 25 mmol/L (21-32); CREATININE 0.8 mg/dL (0.55-1.3); GLUCOSE,RANDOM 110 mg/dL (74-106); LIPASE 236 U/L (73-393); MAGNESIUM 2.5 mg/dL (1.8-2.4); PHOSPHOROUS 2.7 mg/dL (2.5-4.9); POTASSIUM 3.9 mmol/L (3.5-5.1); SGOT/AST 41 U/L (15-37); SGPT/ALT 90 U/L (13-61); SODIUM 137 mmol/L (136-145); TOT PROT 6.9 g/dl (6.4-8.2)
--- NOTE | 2018-01-19 10:22 | EKG ---
Test Reason : Blood Pressure : / mmHG Vent. Rate : 075 BPM Atrial Rate : 075 BPM P-R Int : 158 ms QRS Dur : 094 ms QT Int : 366 ms P-R-T Axes : 066 058 060 degrees QTc Int : 408 ms NORMAL SINUS RHYTHM NORMAL ECG WHEN COMPARED WITH ECG OF 12-JAN-2018 20:20, NO SIGNIFICANT CHANGE WAS FOUND Confirmed by MADELIN SALAMANCA MD ([id number]) on 01/19/2018 10:22:17 AM Referred By: Confirmed By:MADELIN SALAMANCA MD
== END 2018-01-18 21:00 | disposition short-term general hospital (02) ==
LOC: JER 15:21
DX: F14.20 Cocaine dependence, uncomplicated (principal); Z13.89 Encounter for screening for other disorder; F17.210 Nicotine dependence, cigarettes, uncomplicated; F20.9 Schizophrenia, unspecified
CPT/HCPCS: 36415; 80053; 80307; 82550; 82553; 83690; 83735; 84100; 84484; 85025; 85610; 86850; 86900; 86901; 93005; 93010; 99283-25

== ENCOUNTER 2018-11-26 11:34 | Inpatient (IN) | payer OTHER ==
[2018-11-26 12:18] VITALS: BMI 27.3
--- NOTE | 2018-11-26 12:50 | HP ---
CIWA Score - Admission Criteria [facility] Guidelines: Admission for Medically Managed Detox: Requires at least one of the followin. CIWA greater than 12 2. Seizures within the past 24 hours 3. Delirium tremens within the past 24 hours 4. Hallucinations within the past 24 hours 5. Acute intervention needed for co occurring medical disorder 6. Acute intervention needed for co occurring psychiatric disorder 7. Severe withdrawal that cannot be handled at a lower level of care (continued vomiting, continued diarrhea, abnormal vital signs) requiring intravenous medication and/or fluids 8. Admitting History and Physical - Admission Chief Complaint: " I was referred here from [facility] for rehab after completing detox there." History of Present Illness: 53 year old male with alcohol dependence completed detox yesterday at [facility]. Patient was drinking 2 pints of vodka daily, last drink was 5 days ago. Patient was also smoking crack and marijuana: Crack every day up until 5 days ago, Marijuana every other day sporadically, more than 7 days ago was last use. Patient smokes 1ppd for many years since of the age 14 PMH: Spinal Stenosis with chronic back pain Psurg: L Knee arthroscopic surgery for torn meniscus 2006. Appendectomy 2010 Psych: Bipolar on lithium and abilify History Source: Patient Limitations to Obtaining History: No Limitations - Past Medical History Psych: Yes: Bipolar Musculoskeletal: Yes: Chronic low back pain - Smoking History Smoking history: Current every day smoker Have you smoked in the past 12 months: Yes Aproximately how many cigarettes per day: 10 - Alcohol/Substance Use Hx Alcohol Use: No Admission ROS [facility] Chief Complaint: " I was referred here from [facility] for rehab after completing detox there." Allergies/Adverse Reactions: Allergies Allergy/AdvReac Type Severity Reaction Status Date / Time No Known Allergies Allergy Verified 11/26/18 12:10 History of Present Illness: 53 year old male with alcohol dependence completed detox yesterday at [facility]. Patient was drinking 2 pints of vodka daily, last drink was 5 days ago. Patient was also smoking crack and marijuana: Crack every day up until 5 days ago, Marijuana every other day sporadically, more than 7 days ago was last use. Patient smokes 1ppd for many years since of the age 14 PMH: Spinal Stenosis with chronic back pain Psurg: L Knee arthroscopic surgery for torn meniscus 2006. Appendectomy 2010 Psych: Bipolar on lithium and abilify - Ebola screening Have you traveled outside of the country in the last 21 days: No Have you had contact with anyone from an Ebola affected area: No Do you have a fever: No - Review of Systems Constitutional: No Symptoms Reported EENT: reports: No Symptoms Reported Respiratory: reports: No Symptoms reported Cardiac: reports: No Symptoms Reported GI: reports: No Symptoms Reported : reports: No Symptoms Reported Musculoskeletal: reports: No Symptoms Reported Integumentary: reports: No Symptoms Reported Neuro: reports: No Symptoms reported Endocrine: reports: No Symptoms Reported Hematology: reports: No Symptoms Reported Psychiatric: reports: No Sypmtoms Reported Other Systems: Reviewed and Negative Patient History - Patient Medical History Hx Anemia: No Hx Asthma: Yes (Not on meds) Hx Chronic Obstructive Pulmonary Disease (COPD): No Hx Cardiac Disorders: No Hx Hypertension: Yes (Not on meds) Hx Hypercholesterolemia: No HX Cerebrovascular Accident: No Hx Seizures: No Hx Diabetes: No Hx Gastrointestinal Disorders: Yes (Acid reflux) Hx Liver Disease: Yes (Hep C) Hx Genitourinary Disorders: No Hx Sexually Transmitted Disorders: No (Not sexually active) Hx Renal Disease (ESRD): No Hx Thyroid Disease: No Hx Human Immunodeficiency Virus (HIV): No Hx Hepatitis C: Yes (Not treated) Hx Depression: Yes Hx Suicide Attempt: Yes ([facility] attempt [facility]. Reports Suicidal ideation now) Hx Bipolar Disorder: Yes Hx Schizophrenia: Yes - Patient Surgical History Past Surgical History: Yes Hx Neurologic Surgery: No Hx Cataract Extraction: No Hx Cardiac Surgery: No Hx Lung Surgery: No Hx Breast Surgery: No Hx Breast Biopsy: No Hx Abdominal Surgery: No Hx Appendectomy: No Hx Cholecystectomy: Yes Hx Genitourinary Surgery: No Hx Section: No Hx Orthopedic Surgery: Yes (Left knee repair 2006 at [facility]) Anesthesia Reaction: No - PPD History Previous Implant?: Yes Documented Results: Negative w/o proof Implanted On Prior [facility] Admission?: No PPD to be Administered?: Yes - Smoking Cessation Smoking history: Current every day smoker Have you smoked in the past 12 months: Yes Aproximately how many cigarettes per day: 10 Hx Chewing Tobacco Use: No Initiated information on smoking cessation: Yes 'Breaking Loose' booklet given: 11/26/18 - Substances abused Alcohol Substance route: Oral Frequency: Daily Amount used: 2 pints of vodka Age of first use: 14 Date of last use: 11/23/18 Admission Physical Exam [facility] - Vital Signs Vital Signs: Vital Signs - 24 hr 11/26/18 12:06 Temperature 96.7 F L Pulse Rate 75 Respiratory 20 Rate Blood Pressure 118/67 - Physical General Appearance: Yes: No Apparent Distress HEENTM: Yes: EOMI, Hearing grossly Normal, Normal ENT Inspection, Normocephalic , Normal Voice, [place], Pharynx Normal, Tm's normal, Macrocephalic Respiratory: Yes: Lungs Clear, Normal Breath Sounds, No Respiratory Distress, No Accessory Muscle Use Neck: Yes: No masses,lesions,Nodules, Supple, Trachea in good position Breast: Yes: Within Normal Limits Cardiology: Yes: Regular Rhythm, Regular Rate, S1, S2 Abdominal: Yes: Normal Bowel Sounds, Non Tender, Flat, Soft Genitourinary: Yes: Within Normal Limits Back: Yes: Normal Inspection Musculoskeletal: Yes: full range of Motion, Gait Steady, Pelvis Stable Extremities: Yes: Normal Capillary Refill, Normal Inspection, Normal Range of Motion, Non-Tender Neurological: Yes: paymaster of purses II-XII NML intact, Fully Oriented, Alert, Motor Strength 5/5, Normal Mood/Affect, Normal Response Integumentary: Yes: Normal Color, Warm Lymphatic: Yes: Within Normal Limits - Diagnostic (1) Nicotine dependence Current Visit: No Status: Acute (2) Spinal stenosis Current Visit: Yes Status: Acute Screened but not Admitted - Documentation of Visit Screened but not Admitted: No Breathalyzer - Breathalyzer Breathalyzer: 0 (last use 5 days ago) Urine Drug Screen - Test Device Lot number: [id number] Expiration date: 06/26/30 - Control Is test valid?: Yes - Results Drug screen NEGATIVE: No Urine drug screen results: BZO-Benzodiazepines Inpatient Rehab Admission - Rehab Decision to Admit Inpatient rehab admission?: Yes - Initial Determination Are CD services needed?: Yes Free of communicable disease: Yes Not in need of hospitalization: Yes - Rehab Admission Criteria Previous failed treatment: Yes Poor recovery environment: Yes Comorbidities: Yes Lacks judgement: Yes Patient is meeting Inpatient Rehab admission criteria:: Yes
[2018-11-26] MEDS ORDERED: MAG HYDROX/AL HYDROX/SIMETH 30 ML UNIT-DOSE CUP PO PRN (12:56)
[2018-11-26] MEDS ORDERED: ACETAMINOPHEN 325 MG TABLET (FP) PO PRN (12:56)
[2018-11-26] MEDS ORDERED: MAGNESIUM CITRATE 300 ML BOTTLE PO PRN (12:56)
[2018-11-26] MEDS ORDERED: P-EPHED 60MG/TRIPROLIDI 2.5MG TABLET PO PRN (12:56)
[2018-11-26] MEDS ORDERED: LOPERAMIDE HCL 2 MG CAPSULE PO PRN (12:56)
[2018-11-26] MEDS ORDERED: guaiFENesin 200 MG/10 ML 10 ML UNIT-DOSE CUPS PO PRN (12:56)
[2018-11-26] MEDS ORDERED: IBUPROFEN 400 MG TABLET (FP) PO PRN (12:56)
[2018-11-26] MEDS ORDERED: MENTHOL/PHENOL 1 EACH UD MM PRN (12:56)
[2018-11-26] MEDS ORDERED: MAGNESIUM HYDROX 2400MG/30ML ORAL SUSPENSION 30 ML CUP PO PRN (12:56)
[2018-11-26] MEDS: LITHIUM CARBONATE 300 MG CAPSULE (FP) PO SCH ×2 (14:54→21:05)
[2018-11-26 17:12] LABS: HEMOGLOBIN 12.9 GM/dL (11.7-16.9); MCH 28.1 pg (25.7-33.7); MEAN CELL VOLUME 85.1 fl (80-96); MEAN PLT VOLUME 9.8 fl (7.5-11.1); PLATELET COUNT 321 K/MM3 (134-434); RBC 4.58 M/mm3 (4.00-5.60); RDW 14.5 % (11.9-15.9); WHITE BLOOD COUNT 8.4 K/mm3 (4.0-10.0)
[2018-11-26 17:31] LABS: ALBUMIN 3.2 g/dl (3.4-5.0); BILIRUBIN,TOTAL 0.3 mg/dL (0.2-1); BLOOD UREA NITROGEN 17.7 mg/dL (7-18); CALCIUM 9.1 mg/dL (8.5-10.1); CREATININE 0.8 mg/dL (0.55-1.3); POTASSIUM 4.9 mmol/L (3.5-5.1); TOT PROT 6.9 g/dl (6.4-8.2)
[2018-11-26] MEDS ORDERED: MELATONIN 5 MG TABLETS PO PRN (22:00)
[2018-11-26] MEDS ORDERED: THIAMINE HCL 100 MG TABLET (FP) PO SCH (22:00)
[2018-11-26 23:45] LABS: URINE APPEARANCE CLEAR; URINE BILIRUBIN NEGATIVE (NEGATIVE); URINE COLOR YELLOW; URINE GLUCOSE (UA) NEGATIVE (NEGATIVE); URINE KETONE NEGATIVE (NEGATIVE); URINE LEUK ESTERASE NEGATIVE (NEGATIVE); URINE NITRITE NEGATIVE (NEGATIVE); URINE PROTEIN NEGATIVE (NEGATIVE)
[2018-11-27] MEDS: LITHIUM CARBONATE 300 MG CAPSULE (FP) PO SCH ×2 (06:29→14:57)
[2018-11-27 06:57] VITALS: BP 104/66; PULSE 77; TEMP 97.2
[2018-11-27] MEDS ORDERED: PRENATAL VITAMINS W/ FOLIC ACID TABLET (FP) PO SCH (10:00)
[2018-11-27] MEDS ORDERED: NICOTINE 14 MG/24 HOURS TOPICAL PATCH TD SCH (10:00)
[2018-11-27] MEDS ORDERED: ARIPiprazole 10 MG TABLET PO SCH (10:00)
== END 2018-11-27 05:45 | disposition left against medical advice (07) | DRG 770 ==
LOC: YASAS 11:34 → Y3W 13:09
PROVIDERS: ADMIT Neuromusculoskeletal Medicine & OMM; ATTEND Neuromusculoskeletal Medicine & OMM
PROC: HZ42ZZZ Group Counseling for Substance Abuse Treatment, Cognitive-Behavioral (ICD-10-PCS; principal; 2018-11-26)
DX: F10.20 Alcohol dependence, uncomplicated (principal); F17.210 Nicotine dependence, cigarettes, uncomplicated; K21.9 Gastro-esophageal reflux disease without esophagitis; B18.2 Chronic viral hepatitis C; M48.00 Spinal stenosis, site unspecified; Z91.5 Personal history of self-harm
CPT/HCPCS: 36415; 80053; 81003; 85027; 86593